=== PATIENT | male | born 1975 | race African-American/Black ===

== ENCOUNTER 2020-12-17 09:02 | Emergency (ER) | payer OTHER ==
[~2020-12-17] VITALS: Ht 162.6 cm; Wt 97.6 kg
[2020-12-17] MEDS ORDERED: PRIL20TA2 PO (10:15)
[2020-12-17] MEDS ORDERED: ZEST1TAB2 PO (10:15)
[2020-12-17] MEDS ORDERED: MELA5TAB21 PO (10:16)
[2020-12-17] MEDS ORDERED: ISOVUE-370 76% 100ML VIAL As Ordered ONE (11:32)
[2020-12-17 11:38] LABS: BASO % 0.6 % (0.0-1.0); EOS # 0.1 10^3/uL (0.0-0.5); EOS % 1.4 % (0.0-3.0); HEMATOCRIT 41.1 % (42.0-52.0); LYMPH # 2.3 10^3/uL (1.5-5.0); LYMPH % 47.1 % (24.0-44.0); MEAN CORPUSCULAR HEMOGLOBIN 21.6 pg (27.0-33.0); MEAN CORPUSCULAR HGB CONC 31.6 g/dl (32.0-36.5); MEAN CORPUSCULAR VOLUME 68.4 fl (80.0-96.0); MONO # 0.4 10^3/uL (0.0-0.8); MONO % 7.7 % (2.0-8.0); NEUTROPHILS # 2.1 10^3/uL (1.5-8.5); PLATELET COUNT, AUTOMATED 305 10^3/uL (150-450); RED BLOOD COUNT 6.01 10^6/uL (4.30-6.10)
--- NOTE | 2020-12-17 11:59 | REP ---
INDICATION: firm masslike area between LUQ/LLQ COMPARISON: None. TECHNIQUE: CT Scan of the abdomen and pelvis was performed with intravenous administration of 100 cc of Isovue 370, without oral contrast. Sagittal and coronal reconstruction images are performed. FINDINGS: Lung bases: Unremarkable. Liver: Normal Gallbladder: Unremarkable. Spleen: There are multiple calcified granulomas in the spleen. Adrenals: Normal. Pancreas: Normal. Kidneys: Normal. Small and large bowel: Unremarkable. Free fluid: None. Abdominal aorta: No aneurysm or dissection. Adenopathy: None. Appendix: Not inflamed. Osseous structures: There are degenerative changes of the spine without compression deformity. Pelvis: No mass. There is a small umbilical hernia containing noninflamed fat. IMPRESSION: No significant pathology in the abdomen or pelvis. <Electronically signed by Rene Marie > 12/17/20 [id number]
[2020-12-17 12:09] LABS: ALBUMIN 4.2 GM/DL (3.2-5.2); BILIRUBIN,DIRECT 0.1 MG/DL (0.0-0.2); BILIRUBIN,TOTAL 0.5 MG/DL (0.2-1.0); TOTAL PROTEIN 7.7 GM/DL (6.4-8.2)
[2020-12-17 12:29] VITALS: BP 135/82
== END 2020-12-17 12:30 | disposition home or self-care (01) ==
LOC: M ED 09:02
DX: K42.9 Umbilical hernia without obstruction or gangrene (principal); I10 Essential (primary) hypertension; E78.5 Hyperlipidemia, unspecified; K21.9 Gastro-esophageal reflux disease without esophagitis; Z79.899 Other long term (current) drug therapy; Z87.19 Personal history of other diseases of the digestive system
CPT/HCPCS: 74177; 80047; 80076; 83690; 85025; 99284; Q9967

== ENCOUNTER → 2020-12-23 | Outpatient (CLI) | payer OTHER ==
[~2020-12-23] MED LIST: LIQUID POLIBAR PLUS 105% w/v 750ML BTL As Ordered ONE; MELA5TAB21 PO; PRIL20TA2 PO; ZEST1TAB2 PO
--- NOTE | 2020-12-23 16:59 | REP ---
INDICATION: DIVERTICULITIS. COMPARISON: None. TECHNIQUE: CT was performed under the direct supervision of Dr. Marie. The images were reviewed with Dr. Marie. The chute feeder film shows no organomegaly or pathological mass is. The intestinal gas pattern is nonspecific. Liquid barium and air were instilled into the colon in a retrograde flow. Images were obtained using fluoroscopy and spot film. 1.2 minutes of fluoroscopy time was utilized for this procedure. FINDINGS: The colon is normal in position and contour. Haustrations is unremarkable throughout. There is free flow of contrast to the cecum. The appendix is visualized. There are no annular constricting lesions identified. There are no polypoid masses identified. IMPRESSION: Essentially unremarkable double-contrast barium enema examination. <Electronically signed by Norberto Roberson > 12/23/20 [id number] <Electronically signed by Rene Marie > 12/23/20 [id number]
== END ==
LOC: M RAD 08:23
PROVIDERS: ATTEND Internal Medicine Gastroenterology
DX: K57.30 Diverticulosis of large intestine without perforation or abscess without bleeding (principal)

== ENCOUNTER → 2021-02-03 | Outpatient (CLI) | payer OTHER ==
[~2021-02-03] MED LIST changes: +GASTROGRAFIN SOLUTION 30ML (Q9963) As Ordered ONE; +ISOVUE-370 76% 100ML VIAL As Ordered ONE; -LIQUID POLIBAR PLUS 105% w/v 750ML BTL As Ordered ONE
--- NOTE | 2021-02-07 04:28 | REP ---
INDICATION: ABNORMAL FINDING ON IMAGING, DIVERTICULOSIS. COMPARISON: 12/17/2020 TECHNIQUE: Axial contrast-enhanced images from the lung bases to the pubic symphysis using oral and 100 cc Isovue 370 intravenous contrast material. Precontrast images of the abdomen along with coronal and sagittal reformations obtained. This CT examination was performed using the following dose reduction techniques: Automated exposure control, adjustment of mA and/or kv according to the patient's size, and the use of iterative reconstruction technique. FINDINGS: Lung bases are clear. Incidental calcified mediastinal lymph node consistent with prior granulomatous disease. Liver demonstrates mild fatty infiltration without focal hepatic lesion. Spleen includes small calcifications consistent with prior granulomatous disease. Pancreas, gallbladder, bilateral adrenal glands and kidneys are normal. The enteric system including stomach, small, and large bowel appears normal. No evidence for obstruction or acute inflammatory process. Normal terminal ileum and appendix are identified in the right lower quadrant. Few scattered sigmoid diverticula noted without acute diverticulitis. Small 2 cm fat containing periumbilical hernia noted. Pelvis demonstrates normal bladder and age-appropriate prostate/seminal vesicles. No ascites. No free air. No intraperitoneal or retroperitoneal adenopathy. Abdominal aorta and vasculature appear normal. Musculoskeletal structures are intact and without acute osseous abnormality. IMPRESSION: No acute abdominopelvic pathology appreciated. Sigmoid diverticula without acute diverticulitis. Hepatosteatosis. 2 cm fat containing periumbilical hernia without acute changes. <Electronically signed by Magen Dominguez > 02/07/21 0429
== END ==
LOC: M RAD 09:31
PROVIDERS: ATTEND Internal Medicine Gastroenterology
DX: K57.30 Diverticulosis of large intestine without perforation or abscess without bleeding (principal); K76.0 Fatty (change of) liver, not elsewhere classified
CPT/HCPCS: 74178; Q9963; Q9967

== ENCOUNTER 2023-01-04 07:58 | Day surgery (SDC) | payer OTHER ==
[~2023-01-04] VITALS: Ht 162.6 cm; Wt 95.8 kg
[~2023-01-04 07:58] MED LIST changes: -GASTROGRAFIN SOLUTION 30ML (Q9963) As Ordered ONE; -ISOVUE-370 76% 100ML VIAL As Ordered ONE; +LIDOCAINE 2% 100MG/5ML SDV (FOR ANES.) As Ordered ONE; +NS 1,000 ML IV ONE; +propofoL 200 MG/20 ML VIAL As Ordered ONE
[2023-01-04 09:34] VITALS: TEMP 97.3
[2023-01-04 09:58] VITALS: BP 129/86; O2SAT 100
== END 2023-01-04 10:43 | disposition home or self-care (01) ==
LOC: M OPP 07:58
PROVIDERS: ATTEND Internal Medicine Gastroenterology
DX: K92.1 Melena (principal); R19.4 Change in bowel habit; K64.8 Other hemorrhoids; I10 Essential (primary) hypertension; G47.30 Sleep apnea, unspecified; Z79.899 Other long term (current) drug therapy

== ENCOUNTER 2023-04-14 18:57 | Emergency (ER) | payer OTHER ==
[~2023-04-14] VITALS: Ht 162.6 cm; Wt 95.5 kg
[~2023-04-14 18:57] MED LIST changes: -LIDOCAINE 2% 100MG/5ML SDV (FOR ANES.) As Ordered ONE; -NS 1,000 ML IV ONE; -propofoL 200 MG/20 ML VIAL As Ordered ONE
[2023-04-14 18:58] VITALS: BP 154/84; O2SAT 99
[2023-04-14 21:05] VITALS: TEMP 99.4
[2023-04-14] MEDS ORDERED: BENZONATATE 100MG CAPSULE PO ONE (23:25)
[2023-04-14] MEDS ORDERED: MUCI600T31 PO (23:27)
[2023-04-14] MEDS ORDERED: BENZ200C70 PO (23:27)
== END 2023-04-15 00:02 | disposition home or self-care (01) ==
LOC: M ED 18:57
DX: J06.9 Acute upper respiratory infection, unspecified (principal); Z11.52 Encounter for screening for COVID-19; Z79.899 Other long term (current) drug therapy

== ENCOUNTER 2025-02-16 00:59 | Emergency (ER) | payer OTHER ==
[~2025-02-16] VITALS: Ht 162.6 cm; Wt 97.0 kg
[~2025-02-16 00:59] MED LIST changes: +BENZ200C70 PO; +MUCI600T31 PO
[2025-02-16 02:57] LABS: BASO # 0.0 10^3/uL (0.0-0.2); BASO % 0.6 % (0.0-1.0); EOS # 0.0 10^3/uL (0.0-0.5); EOS % 0.7 % (0.0-3.0); LYMPH # 1.4 10^3/uL (1.5-5.0); LYMPH % 25.5 % (24.0-44.0); MONO # 0.3 10^3/uL (0.0-0.8); MONO % 6.2 % (2.0-8.0); NEUTROPHILS # 3.6 10^3/uL (1.5-8.5); NEUTROPHILS % 66.8 % (36.0-66.0); PLATELET COUNT, AUTOMATED 379 10^3/uL (150-450)
[2025-02-16 03:13] LABS: CALCIUM LEVEL 9.4 MG/DL (8.5-10.1); CARBON DIOXIDE LEVEL 26 MMOL/L (20-31); CHLORIDE LEVEL 103 MMOL/L (98-107); CK-MB VALUE MASS < 1.0 NG/ML (<3.6); CPK CREATINE PHOSPHOKINASE 161 U/L (46-171); CREATININE FOR GFR 0.85 MG/DL (0.70-1.30); GLOMERULAR FILTRATION RATE > 90.0 (>60); MAGNESIUM LEVEL 1.9 MG/DL (1.8-2.4); POTASSIUM SERUM 4.0 MMOL/L (3.5-5.1); SODIUM LEVEL 138 MMOL/L (136-145)
[2025-02-16] MEDS: ACETAMINOPHEN *IV* 1,000 MG in IV 1 EA IV ONE (03:34)
[2025-02-16] MEDS: KETOROLAC 30 MG/ML 1 ML VIAL IV ONE (03:34)
[2025-02-16] MEDS ORDERED: CYCL-707 PO (04:49)
[2025-02-16 05:04] VITALS: BP 129/82; TEMP 97.8; O2SAT 97
[2025-02-19 20:14] LABS: LYME TOTAL ANTIBODY CIA <= 0.90 Index (<=0.90)
== END 2025-02-16 05:13 | disposition home or self-care (01) ==
LOC: M ED 00:59
DX: M79.18 Myalgia, other site (principal); I10 Essential (primary) hypertension; K21.9 Gastro-esophageal reflux disease without esophagitis; Z79.899 Other long term (current) drug therapy
CPT/HCPCS: 72125; 72128; 80048; 82550; 82553; 83735; 84484; 85025; 86618; 93005; 96365; 96375; 99284; J0134; J1885